=== PATIENT | male | born 1945 ===

== ENCOUNTER 2022-09-14 10:12 | Day surgery (SDC) | payer MEDICARE, MEDICAID ==
[2022-09-14] VITALS (8 sets, daily range): BP systolic 101–140; BP diastolic 53–83; PULSE 72–88; TEMP 97.1–97.6
[~2022-09-14] VITALS: Ht 170.2 cm; Wt 81.8 kg
[~2022-09-14 10:12] MED LIST: DULCOLAX S10 MG/SUPP RC; DULCOLAX TAB5 MG PO; ELIQUIS 5MG PO; FENTANYL 12MCG TD; FENTANYL 25 MCG TD; FLOMAX 0.40.4 MG/CAP PO; IPRATROPIUM BROM3 M1 IH; LEXAPRO 5MG5 MG PO; LIDO2%GEL TOP; LIORESAL 1010 MG/TAB PO; MACROBID 1100 MG/CAP PO; MIRALAX PA17 GM/Dose PO; MULTI VITAMINS1 TAB PO; NEURONTIN300 MG/CAP PO; OXY IR5 MG PO; PROBIOTIC BLEN1 EACH PO; REQUIP2 MG PO; TYLENOL 500MG500 MG PO; ZOFRAN 4MG T4 MG/TAB PO; [UNRECOGNIZED DRUG - SUPPLY] ICA
--- NOTE | 2022-09-14 13:50 | NUR ---
1240 RETURNS TO ROOM 1 FROM PACU. PATIENT DROWSY, AROUSES EASILY TO VERBAL STIMULATION. FAMILIARIZED WITH SURROUNDINGS. RESP UNLABORED. VITAL SIGNS OBTAINED. PATIENT DENIES DISCOMFORT. SUPRPUBIC CATHETER PATENT. INSERTION SITE PIN, NO DRAINAGE OBSERVED. DENIES PAIN. CALL LIGHT AT SIDE. GAS STATION MANAGER IN ROOM. 1255 TOLERATES PO APPLESAUCE WITHOUT NAUSEA. 1310 DOZES AROUSES EASILY. DENIES PAIN. CATHETER DRAINS LIGHT JORJE URINE 1330 DISCHARGE INSTRUCTIONS REVIEWED WITH PATIENT AND CAREGIVER VERBALIZING UNDERSTANDING. COPY PROVIDED IN DISCHARGE FOLDER. 1340 PATIENT TRANSFERRED VIA LIFT FROM CART TO WHEELCHAIR WITH ASSISTANCE/STANDBY OF 4. POSITIONED FOR COMFORT.
== END 2022-09-14 13:53 | disposition home or self-care (01) ==
LOC: SDCO 10:12
DX: T83.85XA Stenosis due to genitourinary prosthetic devices, implants and grafts, initial encounter (principal); N31.9 Neuromuscular dysfunction of bladder, unspecified; N39.0 Urinary tract infection, site not specified; Q54.1 Hypospadias, penile; Z87.891 Personal history of nicotine dependence
CPT/HCPCS: C1769; C1894; J0690; J1100; J2405; J2704; J3010; J7120